=== PATIENT | female | born 1980 | race Caucasian/White ===

== ENCOUNTER → 2019-09-05 | Outpatient (CLI) | payer BC ==
--- NOTE | 2019-09-05 15:49 | MR ---
EXAMINATION TYPE: MR brain wo con DATE OF EXAM: 09/05/2019 COMPARISON: NONE HISTORY: Optic nerve pseudopapilledema / DOMINGUEZ TECHNIQUE: Multiplanar, multisequence images of the brain and brainstem is performed without intravenous contras t as intravenous access was not able to be obtained. FINDINGS: Diffusion weighted images demonstrate no evidence of a recent infarct or other diffusion ab normality. There is no extra-axial fluid collection. Few punctate foci of nonspecific white matter c hange seen as T2/FLAIR hyperintensity are present within the deep white matter and subcortical white matter such as within the bilateral parietal lobes on FLAIR axial fat-sat image 21 through 23. The la rgest on the right measures 4 x 3 mm. The ventricular system and cisternal spaces are normal in size and appearance. The brain volume is age appropriate. Midline structures demonstrate normal morphology. No tonsillar ectopia or herniation is seen. Sella t urcica and pituitary are unremarkable. The craniocervical junction appears within normal limits. Pos t contrast images demonstrate no abnormal enhancement. The dural venous sinuses appear patent. The vi sualized sinuses are clear and the globes are intact. There is undulating contour of the optic nerves, particularly on the left with an abnormal amount of subarachnoid fluid surrounding the optic nerves. Globes are symmetric and lenses are in place. No int raconal or trauma call mass is identified. IMPRESSION: 1. Undulation of the optic nerves and abnormal amount of perioptic subarachnoid fluid in this patient with patient's clinical diagnosis of pseudopapilledema. Findings can be seen in pseudotumor cerebri. Lumbar puncture with opening pressure could be performed for further evaluation. 2. No acute infarct, midline shift or mass effect. 3. Few punctate foci of nonspecific white matter change. These are not in a typical distribution for demyelinating disease. Microangiopathy, sequela of migraines or vasculitis are other considerations.
== END | disposition home or self-care (01) ==
LOC: RADMRIMAIN 11:50
PROVIDERS: ATTEND Ophthalmology
DX: H47.339 Pseudopapilledema of optic disc, unspecified eye (principal); R90.89 Other abnormal findings on diagnostic imaging of central nervous system
CPT/HCPCS: 70551

== ENCOUNTER → 2020-02-06 | Outpatient (CLI) | payer BC ==
--- NOTE | 2020-02-06 14:11 | MR ---
EXAMINATION TYPE: MR orbits wo/w con DATE OF EXAM: 02/06/2020 COMPARISON: MR brain 09/05/2019 HISTORY: Eye Exam showed Optic Nerve swelling bilaterally. Headaches. TECHNIQUE: Multiplanar, multisequence images of the orbits is performed without and with IV contrast, utilizing 12 mL intravenous Gadavist . FINDINGS: Extraocular musculature shows a symmetric appearance and is unremarkable. No abnormal enhan cement following contrast administration. The globes are intact. There are normal vascular flow voids . No evident orbital mass. Orbital vasculature is symmetric. Optic nerves show symmetric appearance, fluid along the optic nerves is again seen as on prior exam. There is no evident hydrocephalus. Pitui tary shows an unremarkable appearance. Optic chiasm is normal. Visualized paranasal sinuses are well aerated. IMPRESSION: Findings are similar to prior exam, see dictated report MRI brain 09/05/2019. No evident or bital mass. No abnormal enhancement.
== END | disposition home or self-care (01) ==
LOC: RADMRIMAIN 08:25
PROVIDERS: ATTEND Ophthalmology
DX: G44.219 Episodic tension-type headache, not intractable (principal); H47.333 Pseudopapilledema of optic disc, bilateral
CPT/HCPCS: 70543; A9585

== ENCOUNTER → 2021-05-30 | Outpatient (CLI) | payer BC ==
--- NOTE | 2021-06-03 10:14 | MM ---
Reason for exam: screening (asymptomatic). Baseline mammogram. History: Family history of breast cancer in paternal aunt at age 60. Taking hormonal contraceptives beginning at age 21. Physical Findings: Nurse did not find any significant physical abnormalities on exam. MG Screening Mammo w CAD Bilateral CC and MLO view(s) were taken. There are scattered fibroglandular densities. Solitary benigntiny oil cyst on the left. No significant changes when compared with prior studies. ASSESSMENT: Negative, BI-RAD 1 RECOMMENDATION: Routine screening mammogram of both breasts in 1 year.
== END | disposition home or self-care (01) ==
LOC: RADMAMWWP 14:27
PROVIDERS: ATTEND Obstetrics & Gynecology
DX: Z12.31 Encounter for screening mammogram for malignant neoplasm of breast (principal); Z80.3 Family history of malignant neoplasm of breast
CPT/HCPCS: 77067

== ENCOUNTER → 2021-08-21 | Outpatient (CLI) | payer BC ==
--- NOTE | 2021-08-21 15:32 | XR ---
Right foot HISTORY: Pain, trauma 3 views the right foot Bone mineralization, joint spaces and alignment are maintained. There is a plantar calcaneal spur. So me spurring present at the tarsometatarsal joints consistent with osteoarthritic change. There is sof t tissue swelling. IMPRESSION: No evident fracture or dislocation, follow-up as indicated for persistent symptoms.
== END ==
LOC: RAD 13:16
PROVIDERS: ATTEND Family Medicine
DX: M79.671 Pain in right foot (principal); Z88.1 Allergy status to other antibiotic agents; Z88.8 Allergy status to other drugs, medicaments and biological substances

== ENCOUNTER → 2022-07-10 | Outpatient (CLI) | payer BC ==
--- NOTE | 2022-07-13 07:24 | MM ---
Reason for Exam: Screening (asymptomatic). Last mammogram was performed 1 year(s) and 1 month(s) ago. Patient History: Menarche at age 22. First Full-Term at age 30. Left ovary removed at age 20. Currently using Hormonal Contraceptives, starting at age 21. Paternal aunt had breast cancer, age 60. Risk Values: Dariela 5 year model risk: 0.6%. NCI Lifetime model risk: 10.1%. Prior Study Comparison: 05/30/2021 Bilateral Screening Mammogram, [facility]. Tissue Density: There are scattered fibroglandular densities. Findings: Analyzed By CAD. There is a 10 mm focal asymmetry in the anterior upper outer aspect left breast that warrants further workup. Overall Assessment: Incomplete: need additional imaging evaluation, BI-RAD 0 Management: Diagnostic Breast Ultrasound of the right breast. Targeted ultrasound right breast. Electronically signed and approved by: Dane Sommer M.D.
== END | disposition home or self-care (01) ==
LOC: RADMAMWWP 08:49
PROVIDERS: ATTEND Obstetrics & Gynecology
DX: Z12.31 Encounter for screening mammogram for malignant neoplasm of breast (principal); Z80.3 Family history of malignant neoplasm of breast; Z90.721 Acquired absence of ovaries, unilateral
CPT/HCPCS: 77063; 77067

== ENCOUNTER → 2022-07-14 | Outpatient (CLI) | payer BC ==
--- NOTE | 2022-07-14 08:57 | USB ---
Reason for Exam: Additional evaluation requested from abnormal screening. Patient History: Menarche at age 22. First Full-Term at age 30. Left ovary removed at age 20. Currently using Hormonal Contraceptives, starting at age 21. Paternal aunt had breast cancer, age 60. Risk Values: Dariela 5 year model risk: 0.6%. NCI Lifetime model risk: 10.1%. Technique: Method: Targeted. Prior Study Comparison: 05/30/2021 Bilateral Screening Mammogram, [facility]. 07/10/2022 Bilateral MG 3D screening mammo w/cad, [facility]. Findings: The upper outer quadrant of the left breast, the axilla of the left breast and the retroareolar of the left breast were scanned. Electronically signed and approved by: Timbo Luna D.O.
== END | disposition home or self-care (01) ==
LOC: RADUSWWP 08:19
PROVIDERS: ATTEND Obstetrics & Gynecology
DX: R92.8 Other abnormal and inconclusive findings on diagnostic imaging of breast (principal); Z80.3 Family history of malignant neoplasm of breast

== ENCOUNTER → 2023-02-25 | Outpatient (CLI) | payer BC ==
--- NOTE | 2023-02-25 15:24 | USB ---
Reason for Exam: Follow-up at short interval from prior study. Patient History: Menarche at age 22. First Full-Term at age 30. Left ovary removed at age 20. Currently using Hormonal Contraceptives, starting at age 21. Paternal aunt had breast cancer, age 60. Risk Values: Dariela 5 year model risk: 0.6%. NCI Lifetime model risk: 10.1%. Technique: Method: Targeted. Prior Study Comparison: 05/30/2021 Bilateral Screening Mammogram, [facility]. 07/10/2022 Bilateral MG 3D screening mammo w/cad, [facility]. Findings: The upper outer quadrant of the left breast was scanned. Targeted ultrasound left breast from 12-3 o'clock was performed for additional evaluation of the nipple and axilla. Stable anechoic cyst/cluster cysts in the left breast at 2:00 5 cm the nipple without internal color flow. This measures 0.7 x 0.8 x 0.3 cm. It is parallel orientation within wall and demonstrates some posterior acoustic enhancement. Overall Assessment: Benign, BI-RAD 2 Management: Screening Mammogram of both breasts in 6 months. A clinical breast exam by your physician is recommended on an annual basis and results should be correlated with mammographic findings. This exam should not preclude additional follow-up of suspicious palpable abnormalities. Results were given to the patient verbally at the time of exam. Electronically signed and approved by: Timbo Luna D.O.
== END | disposition home or self-care (01) ==
LOC: RADUSWWP 15:03
PROVIDERS: ATTEND Obstetrics & Gynecology
DX: R92.8 Other abnormal and inconclusive findings on diagnostic imaging of breast (principal); Z80.3 Family history of malignant neoplasm of breast

== ENCOUNTER → 2024-08-11 | Outpatient (CLI) | payer BC ==
--- NOTE | 2024-08-12 23:29 | MM ---
Reason for Exam: Screening (asymptomatic). Last mammogram was performed 2 year(s) and 1 month(s) ago. Patient History: Menarche at age 22. First Full-Term at age 30. Left ovary removed at age 20. Currently using Hormonal Contraceptives, starting at age 21. Paternal aunt had breast cancer, age 60. Risk Values: Dariela 5 year model risk: 0.7%. NCI Lifetime model risk: 9.9%. Prior Study Comparison: 05/30/2021 Bilateral Screening Mammogram, [facility]. 07/10/2022 Bilateral MG 3D screening mammo w/cad, [facility]. Tissue Density: There are scattered areas of fibroglandular density. Findings: Analyzed By CAD. The pattern is symmetrical. There is a new rounded density measuring 0.5 cm well-circumscribed margins located 9 cm simple cyst in the lower outer left breast approximately 4 to 5:00 position. Additional workup with ultrasound is recommended. Correlate for skin lesion. No suspicious groups of microcalcifications, spiculated or lobular masses, architectural distortion or other secondary signs of malignancy are mammographically apparent. Overall Assessment: Incomplete: need additional imaging evaluation, BI-RAD 0 Management: Diagnostic Breast Ultrasound of the left breast. A negative mammogram report should not preclude additional follow up of suspicious palpable abnormalities. Patient should continue monthly self breast exam. A clinical breast exam by your physician is recommended on an annual basis and results should be correlated with mammographic findings. Note on Dariela scores and lifetime risk: 1. A Dariela score greater than 3% is considered moderate risk. If this is the case, consider specialist referral to assess eligibility for a risk reducing agent. 2. If overall lifetime risk for the development of breast cancer is 20% or higher, the patient may qualify for future screening with alternating mammogram and breast MRI. [facility], , 08/12/2024 11:25 PM. Electronically signed and approved by: Jose Joseph D.O. Radiologis
== END | disposition home or self-care (01) ==
LOC: RADMAMWWP 08:21
PROVIDERS: ATTEND Family Medicine
DX: Z12.31 Encounter for screening mammogram for malignant neoplasm of breast (principal); R92.323 Mammographic fibroglandular density, bilateral breasts; Z80.3 Family history of malignant neoplasm of breast
CPT/HCPCS: 77063; 77067

== ENCOUNTER → 2024-08-21 | Outpatient (CLI) | payer BC ==
--- NOTE | 2024-08-21 15:41 | USB ---
Reason for Exam: Additional evaluation requested from abnormal screening. Patient History: Menarche at age 22. First Full-Term at age 30. Left ovary removed at age 20. Currently using Hormonal Contraceptives, starting at age 21. Paternal aunt had breast cancer, age 60. Risk Values: Dariela 5 year model risk: 0.7%. NCI Lifetime model risk: 9.9%. Technique: Method: Targeted. Prior Study Comparison: 05/30/2021 Bilateral Screening Mammogram, [facility]. 07/10/2022 Bilateral MG 3D screening mammo w/cad, [facility]. 08/11/2024 Bilateral MG 3D screening mammo w/cad, [facility]. Findings: The lower section of the breast of the left breast, the axilla of the left breast and the retroareolar of the left breast were scanned. Targeted ultrasound left breast 4:00 position, 12 cm from the nipple at the site of mammographic nodularity shows a cyst with internal debris abutting the skin layer measuring 7 x 6 x 5 mm. No other solid or cystic lesion or axillary lymphadenopathy. Overall Assessment: Benign, BI-RAD 2 Management: Screening Mammogram of both breasts in 1 year. In addition, further clinical management of patient's new 7 mm sebaceous versus epidermal inclusion cyst 4:00 position left breast. A clinical breast exam by your physician is recommended on an annual basis and results should be correlated with mammographic findings. This exam should not preclude additional follow-up of suspicious palpable abnormalities. Results were given to the patient verbally at the time of exam. [facility], , 08/21/2024 3:35 PM. Electronically signed and approved by: Allan Andrade M.D. Radiologist
== END | disposition home or self-care (01) ==
LOC: RADUSWWP 15:06
PROVIDERS: ATTEND Family Medicine
DX: R92.8 Other abnormal and inconclusive findings on diagnostic imaging of breast (principal); Z80.3 Family history of malignant neoplasm of breast; Z90.721 Acquired absence of ovaries, unilateral